=== PATIENT | female | born 1965 | race Caucasian/White ===

== ENCOUNTER → 2022-08-10 | Outpatient (CLI) | payer BC | LOC: US 12:19 | PROVIDERS: ATTEND Family Medicine | DX: E04.1 Nontoxic single thyroid nodule (principal) | CPT/HCPCS: 10005; 88172; 88173; 88300; 88305; 88342 ==

== ENCOUNTER 2022-11-18 20:59 | Emergency (ER) | payer BC ==
[~2022-11-18] VITALS: Ht 165.1 cm; Wt 70.3 kg
[2022-11-18] MEDS ORDERED: NAPROSYN500 MG PO (21:22)
[2022-11-18] MEDS ORDERED: HYDROCODONE/APAP 7.5MG-325MG 1 EA TAB PO ONE (21:30)
[2022-11-18] MEDS ORDERED: KETOROLAC TROMETHAMINE 60 MG/2 ML VIAL IM ONE (21:30)
[2022-11-18] MEDS ORDERED: KETOROLAC TROMETHAMINE 60 MG/2 ML VIAL ONE (21:31)
== END 2022-11-18 21:33 | disposition home or self-care (01) ==
LOC: ER 21:08
DX: K08.89 Other specified disorders of teeth and supporting structures (principal); K02.9 Dental caries, unspecified
CPT/HCPCS: 99282; J1885